=== PATIENT | male | born 1945 | race Caucasian/White ===

== ENCOUNTER → 2016-09-06 | Outpatient (CLI) | payer MEDICARE, OTHER | LOC: LAB.O 08:52 | PROVIDERS: ATTEND Internal Medicine Rheumatology | DX: Z79.899 Other long term (current) drug therapy (principal) ==

== ENCOUNTER → 2016-09-20 | Outpatient (CLI) | payer MEDICARE, OTHER | END | disposition home or self-care (01) | LOC: GMAJ 11:37 | PROVIDERS: ATTEND Family Medicine | DX: Z12.5 Encounter for screening for malignant neoplasm of prostate (principal) ==

== ENCOUNTER → 2018-01-23 | Outpatient (CLI) | payer MEDICARE, OTHER | LOC: GMAJ 10:47 | PROVIDERS: ATTEND Family Medicine | DX: Z12.5 Encounter for screening for malignant neoplasm of prostate (principal) ==

== ENCOUNTER → 2018-02-13 | Outpatient (CLI) | payer MEDICARE, OTHER ==
--- NOTE | 2018-02-13 17:24 | RAD ---
EXAM DESCRIPTION: Pelvis CLINICAL HISTORY: 72 years Male, HIP PN COMPARISON: None. FINDINGS: Two views of the pelvis demonstrate the bony pelvic ring intact with the SI joints intact. The bones are normally mineralized with mild hypertrophic degenerative changes at the lateral acetabular rims. Joint space of each hip is intact. No soft tissue masses are noted. IMPRESSION: Negative pelvis two views. Electronically signed by: Syd Mack MD 02/13/2018 5:23 PM CDT
== END ==
LOC: RAD 09:05
PROVIDERS: ATTEND Orthopaedic Surgery
DX: M25.551 Pain in right hip (principal)

== ENCOUNTER → 2018-12-24 | Outpatient (CLI) | payer MEDICARE, OTHER | LOC: LAB.O 09:24 | PROVIDERS: ATTEND Internal Medicine | DX: N18.4 Chronic kidney disease, stage 4 (severe) (principal); E83.42 Hypomagnesemia; E83.39 Other disorders of phosphorus metabolism; D50.9 Iron deficiency anemia, unspecified; E21.1 Secondary hyperparathyroidism, not elsewhere classified ==

== ENCOUNTER → 2019-01-22 | Outpatient (CLI) | payer MEDICARE, OTHER | LOC: YCHH 09:11 | PROVIDERS: ATTEND Family Medicine | DX: D64.9 Anemia, unspecified (principal); E78.5 Hyperlipidemia, unspecified; E11.9 Type 2 diabetes mellitus without complications; N39.0 Urinary tract infection, site not specified; N19 Unspecified kidney failure ==

== ENCOUNTER → 2019-02-13 | Outpatient (CLI) | payer MEDICARE, OTHER ==
--- NOTE | 2019-02-14 17:31 | US ---
EXAM DESCRIPTION: Renal: Ultrasound. CLINICAL HISTORY: 73 years Male CHRONIC KIDNEY DISEASE COMPARISON: None TECHNIQUE: Transcutaneous scanning: Two-dimensional and Doppler modes. Technically limited study due to poor visualization of the right kidney. FINDINGS: Right kidney measures 9.9 x 6.8 x 5.8 cm; mid-renal cortical thickness 9.8 mm. . Normal echogenicity. No hydronephrosis No echogenic stones. Smooth contour of the kidney with no perinephric fluid. Normal vascularity. Proximal ureter not seen. Left kidney measures 10.8 x 5.9 x 5.7 cm; mid-renal cortical thickness 9.5 mm.. Normal echogenicity. No hydronephrosis. No echogenic stones. Smooth contour of the kidney with no perinephric fluid. Normal vascularity.. Proximal ureter not seen. Urinary bladder was visualized. Prevoid volume 89 mL. Ureteral jet in the bladder seen by Doppler. Post void volume 45.7 mL. Micturition volume 43.3 mL. Abdominal aorta: not measured. IMPRESSION: 1. Bilateral cortical thinning of the kidneys with normal echogenicity. Normal size with no hydronephrosis or echogenic stones. No perinephric fluid. Smooth capsule bilaterally. Proximal ureters not seen. 2. Urinary bladder not well distended. Less than 50% micturition volume. Residual almost 46 mL. No ureteral jets seen in the urinary bladder by Doppler evaluation. Electronically signed by: Jatin Barbour MD 02/14/2019 5:29 PM CDT
== END ==
LOC: US 07:51
PROVIDERS: ATTEND Internal Medicine Medical Oncology
DX: N18.4 Chronic kidney disease, stage 4 (severe) (principal)

== ENCOUNTER → 2019-05-07 | Outpatient (CLI) | payer MEDICARE, OTHER | LOC: GMAJ 14:41 | PROVIDERS: ATTEND Family Medicine | DX: Z12.5 Encounter for screening for malignant neoplasm of prostate (principal) ==

== ENCOUNTER → 2020-05-19 | Outpatient (CLI) | payer MEDICARE, OTHER | LOC: GMAJ 11:00 | PROVIDERS: ATTEND Family Medicine | DX: E78.2 Mixed hyperlipidemia (principal); I10 Essential (primary) hypertension ==